=== PATIENT | female | born 1955 | race Two or more races ===

== ENCOUNTER 2018-07-28 05:09 | Day surgery (SDC) | payer BC ==
[2018-07-28] MEDS ORDERED: BACITRACIN 50000 UNITS/VIAL ONE (06:25)
[2018-07-28] MEDS ORDERED: ANESTHESIA TRAY IN PYXIS 1 EA TRAY MC ONE (06:25)
[2018-07-28] MEDS ORDERED: BUPIVACAINE 0.5 % PF 150 MG/30 ML VIAL ONE (08:17)
[2018-07-28] MEDS ORDERED: methylPREDNISolone ACETATE 40 MG/ML VIAL ONE (08:17)
[2018-07-28] MEDS ORDERED: CLINDAMYCIN 900 MG/6 ML VIAL ONE (08:17)
[2018-07-28] MEDS ORDERED: MIDAZOLAM HCL 2 MG/2ML VIAL ONE (08:34)
[2018-07-28] MEDS ORDERED: KETOROLAC TROMETHAMINE INJ 30 MG/ML VIAL ONE (09:17)
[2018-07-28] MEDS ORDERED: oxyCODONE HCL SR 10MG TAB.SR.12H PO ONE (09:22)
[2018-07-28] MEDS ORDERED: HYDROCODONE/APAP 5/325MG 1 EACH TABLET PO PRN (09:30)
== END 2018-07-28 10:30 | disposition home or self-care (01) ==
LOC: DS 05:09
PROVIDERS: ATTEND Specialist
DX: S83.241A Other tear of medial meniscus, current injury, right knee, initial encounter (principal); S83.281A Other tear of lateral meniscus, current injury, right knee, initial encounter; M94.261 Chondromalacia, right knee; J45.909 Unspecified asthma, uncomplicated; I10 Essential (primary) hypertension; E66.9 Obesity, unspecified; Z68.30 Body mass index [BMI] 30.0-30.9, adult; Z98.890 Other specified postprocedural states; Z79.899 Other long term (current) drug therapy; X58.XXXA Exposure to other specified factors, initial encounter; Y93.89 Activity, other specified; Y92.89 Other specified places as the place of occurrence of the external cause; Y99.8 Other external cause status
CPT/HCPCS: 20610; 29880; 88304; 88311; A4217; A6253; J1030; J1100; J1885; J2250; J2405; J2704; J3490 ×3